=== PATIENT | female | born 1960 | race Caucasian/White ===

== ENCOUNTER 2019-03-21 09:45 | Emergency (ER) | payer OTHER ==
[2019-03-21 09:50] VITALS: BP 127/67
[2019-03-21 11:25] LABS: ABSOLUTE EOSINOPHILS # (AUTO) 0.1 10^3/uL (0.0-0.6); ABSOLUTE LYMPHOCYTES (AUTO) 1.5 10^3/uL (0.5-4.7); ABSOLUTE MONOCYTES (AUTO) 0.9 10^3/uL (0.1-1.4); ABSOLUTE NEUT (AUTO) 6.1 10^3/uL (1.7-8.2); BASOPHILS % (AUTO) 0.3 % (0-2); EOSINOPHILS % (AUTO) 1.5 % (0-6); HEMATOCRIT 40.8 % (36.0-47.0); HEMOGLOBIN 13.6 g/dL (12.0-15.5); LYMPHOCYTES % (AUTO) 17.2 % (13-45); MEAN CORPUSCULAR HEMOGLOBIN 29.8 pg (27.0-33.4); MEAN CORPUSCULAR HGB CONC 33.4 g/dL (32.0-36.0); MEAN CORPUSCULAR VOLUME 89 fl (80-97); MONOCYTES % (AUTO) 10.1 % (3-13); PLATELET COUNT 279 10^3/uL (150-450); RED BLOOD COUNT 4.58 10^6/uL (3.72-5.28); RED CELL DISTRIBUTION WIDTH 13.4 % (11.5-14.0); SEGMENTED NEUTROPHILS % (AUTO) 70.9 % (42-78); TOTAL CELLS COUNTED % (AUTO) 100 %; WHITE BLOOD COUNT 8.6 10^3/uL (4.0-10.5)
[2019-03-21 11:28] LABS: ALBUMIN 4.2 g/dL (3.5-5.0); ALKALINE PHOSPHATASE 93 U/L (38-126); ANION GAP 7 (5-19); ASPARTATE AMINO TRANSFERASE 32 U/L (14-36); BILIRUBIN,TOTAL 0.5 mg/dL (0.2-1.3); BLOOD UREA NITROGEN 11 mg/dL (7-20); CARBON DIOXIDE 30 mmol/L (22-30); CHLORIDE 103 mmol/L (98-107); GLUCOSE 107 mg/dL (75-110); POTASSIUM 3.9 mmol/L (3.6-5.0); TOTAL PROTEIN 7.3 g/dL (6.3-8.2)
--- NOTE | 2019-03-21 11:34 | ER Document Report ---
ED Medical Screen (RME) - General Chief Complaint: Needle Stick Exposure Stated Complaint: NEEDLE STICK Time Seen by Provider: 03/21/19 11:31 Mode of Arrival: Ambulatory Information source: Patient Notes: 59-year-old female presented to ED for prophylactics and testing after being stuck by a needle last night after given a flu shot to a patient at the drugstore. She states after she gave the shot she went out because she had stopped her self. She states there was no bleeding at the site. She states she did ask the patient he states he does not have any history of HIV or hepatitis but did not want to be tested. Patient is alert oriented respirations regular nonlabored speaking in full sentences walks with even steady gait. She was just diagnosed with breast cancer and has to have lumpectomies done on Fridays and cannot have any interference with that surgery. She states her last tetanus was in January 2015. I have greeted and performed a rapid initial assessment of this patient. A comprehensive ED assessment and evaluation of the patient, analysis of test results and completion of medical decision making process will be conducted by an additional ED providers. TRAVEL OUTSIDE OF THE [place] IN LAST 30 DAYS: No Past Medical History - Social History Frequency of alcohol use: Occasional Physical Exam - Vital signs Vitals: Temp Pulse Resp BP Pulse Ox 98.3 F 70 20 127/67 H 97 03/21/19 09:49 03/21/19 09:49 03/21/19 09:49 03/21/19 09:49 03/21/19 09:49 Course - Vital Signs Vital signs: Temp Pulse Resp BP Pulse Ox 98.3 F 70 20 127/67 H 97 03/21/19 09:49 03/21/19 09:49 03/21/19 09:49 03/21/19 09:49 03/21/19 09:49 - Laboratory Result Diagrams: 03/21/19 10:54 03/21/19 10:54
[2019-03-21 11:51] LABS: INTERNATIONAL RATION (INR) 0.91; PROTHROMBIN TIME 12.2 SEC (11.4-15.4)
--- NOTE | 2019-03-21 12:29 | ER Document Report ---
ED General - General Chief Complaint: Needle Stick Exposure Stated Complaint: NEEDLE STICK Time Seen by Provider: 03/21/19 11:31 Mode of Arrival: Ambulatory Information source: Patient Notes: HPI: Patient is a 59-year-old female that presents today after a needlestick. Patient is a pharmacist at [employer] and gave an influenza injection intramuscularly and then was subsequently stuck by the needle. She states no blood shown to the left index finger stick site. Patient asked the patient she gave the vaccine to if he had any history of HIV or hepatitis. Patient denied. Patient wanted evaluation and to review her choices for prophylactic medications. Patient states her hepatitis B panel is up-to-date. Her tetanus is up-to-date. She denies any other symptoms. ROS: See HPI Reviewed vital signs and nursing note as charted by RN. PHYSICAL EXAM: CONSTITUTIONAL: Alert and oriented and responds appropriately to questions. Well-appearing; well-nourished HEAD: Normocephalic; atraumatic EXT: Normal ROM in all joints; non-tender to palpation; no edema SKIN: No active bleeding from the fingerstick site TRAVEL OUTSIDE OF THE [place] IN LAST 30 DAYS: No Past Medical History - General Information source: Patient - Social History Smoking Status: Unknown if Ever Smoked Frequency of alcohol use: Occasional Family History: Reviewed & Not Pertinent Patient has suicidal ideation: No Patient has homicidal ideation: No Physical Exam - Vital signs Vitals: Temp Pulse Resp BP Pulse Ox 98.3 F 70 20 127/67 H 97 03/21/19 09:49 03/21/19 09:49 03/21/19 09:49 03/21/19 09:49 03/21/19 09:49 Course - Re-evaluation Re-evalutation: 03/21/19 12:27 We have ordered HIV, hepatitis B, hepatitis C. Patient's tetanus is up-to-date. I have had a long discussion with the patient regarding antiretrovirals. It was an intramuscular injection. Patient states she saw no blood to the fingertip after the stick. After long discussion, explaining the risks and benefits, she has declined antiretroviral therapy. I believe this is a reasonable option. Hepatitis and HIV panels are pending upon discharge. - Vital Signs Vital signs: Temp Pulse Resp BP Pulse Ox 98.3 F 70 20 127/67 H 97 03/21/19 09:49 03/21/19 09:49 03/21/19 09:49 03/21/19 09:49 03/21/19 09:49 - Laboratory Result Diagrams: 03/21/19 10:54 03/21/19 10:54 Discharge - Discharge Clinical Impression: Needlestick injury accident Condition: Good Disposition: HOME, SELF-CARE Additional Instructions: Come back immediately with any pain, fevers, swelling or induration of the finger, or any other acute problems. Please follow-up with your doctor as discussed.
[2019-03-23 10:36] LABS: HEPATITIS C VIRUS AB <0.1 s/co ratio (0.0-0.9)
== END 2019-03-21 13:05 | disposition home or self-care (01) ==
LOC: ER 09:45
DX: S61.231A Puncture wound without foreign body of left index finger without damage to nail, initial encounter (principal); W46.1XXA Contact with contaminated hypodermic needle, initial encounter; Y99.0 Civilian activity done for income or pay
CPT/HCPCS: 36415; 80053; 85025; 85610; 86317; 86701; 86803; 86804; 99283